=== PATIENT | male | born 1995 | race Caucasian/White ===

== ENCOUNTER 2018-02-04 19:46 | Inpatient (IN) | payer BC, OTHER ==
[~2018-02-04] VITALS: Ht 190.5 cm; Wt 63.5 kg
--- NOTE | 2018-02-04 21:30 | NUR ---
Pre-admission Assessment Patient is a 22-year old, male, seen at intake, AAOx4 and with no SOB noted. Patient appears anxious, fidgety, tremulous and easily agitated. Patient also observed to be flushed, disheveled, unkempt and malodorous. Discussed with patient admission policies of the unit. Patient has racing thoughts, is hyperverbal but coherent and able to respond to questions appropriately. Vital signs taken and as follows: PG=567/87, P=61, O2 sat on FE=277%, RR=22, T=98.3. Pt verbalized instructions and teachings regarding disposal of narcotic and other controlled home meds, unit protocols such as taking of vital signs Q4H and handling and disposal of contraband.
[2018-02-04] MEDS ORDERED: LORAZEPAM 2 MG/1 ML VIAL IM PRN (22:15)
[2018-02-04] MEDS ORDERED: DIAZEPAM 5 MG TABLET PO PRN (22:15)
[2018-02-04] MEDS ORDERED: ONDANSETRON ODT 4 MG TAB.RAPDIS SL PRN (22:15)
[2018-02-04] MEDS ORDERED: MAGNESIUM HYDROXIDE 30 ML LIQUID UDC PO PRN (22:15)
[2018-02-04] MEDS ORDERED: MAG HYDROX/AL HYDROX/SIMETH 30 ML LIQUID UDC PO PRN (22:15)
[2018-02-04] MEDS ORDERED: DICYCLOMINE HCL 20 MG TABLET PO PRN (22:15)
[2018-02-04] MEDS ORDERED: ONDANSETRON 4 MG/2 ML VIAL IM PRN (22:15)
[2018-02-04] MEDS ORDERED: diphenhydrAMINE 50 MG CAPSULE PO PRN (22:15)
[2018-02-04] MEDS ORDERED: MIRALAX 17 GM POWD.PACK PO PRN (22:15)
[2018-02-04] MEDS ORDERED: HYDROXYZINE PAMOATE 25 MG CAPSULE PO PRN (22:15)
[2018-02-04] MEDS ORDERED: THIAMINE HCL 200 MG/2 ML VIAL IM ONE (22:15)
[2018-02-04] MEDS ORDERED: LOPERAMIDE HCL 2 MG CAPSULE PO PRN ×2 (22:15)
[2018-02-04] MEDS ORDERED: DIAZEPAM 10 MG TABLET PO PRN ×2 (22:15)
[2018-02-04] MEDS ORDERED: ACETAMINOPHEN 325 MG TABLET PO PRN (22:15)
[2018-02-04] MEDS ORDERED: BUPRENORPHINE HCL 2 MG TAB.SUBL SL PRN (22:15)
[2018-02-04] MEDS ORDERED: DIAZEPAM 10 MG TABLET PO ONE (22:30)
[2018-02-04] MEDS ORDERED: BUPRENORPHINE HCL 2 MG TAB.SUBL SL ONE (22:30)
[2018-02-04 22:41] LABS: *AMPHETAMINE, URINE POSITIVE (NEGATIVE); *BARBITURATE, URINE NEGATIVE (NEGATIVE); *CANNABINOID, URINE POSITIVE (NEGATIVE); *COCCAINE, URINE POSITIVE (NEGATIVE); *OPIATE, URINE POSITIVE (NEGATIVE); *PHENCYCLIDINE SCREEN,URINE NEGATIVE (NEGATIVE)
--- NOTE | 2018-02-04 22:50 | NUR ---
Admission Note Patient is a 22-year-old, male, arrived to the floor at 2210 to be admitted for medically supervised withdrawal from Benzodiazepines (Xanax), Alcohol (Fireball-Cinnamon Whiskey) and Opiates (Heroin). Patient has also been using Cocaine, Methamphetamine and Marijuana. The patient appears to be withdrawing from using the substances mentioned above. He is noted to be depressed, anxious, easily agitated, hyper-verbal, with racing thoughts, restless, fidgety and tremulous. Patient c/o pain on bilateral lower extremities=4/10, and he verbalized that this is part of his withdrawal symptoms. Patient also observed to have gross tremors and appears disheveled, unkempt and malodorous. He also has dirty fingernails, dark under-eye circles and is seen to have compulsive skin picking. Patient verbalized, "I don't feel good. I can't sit still. I need help PAUL." Patient is AAOx4 and cooperative but at the same time is suspicious and paranoid. He verbalized, "I feel like you guys are talking about me behind my back. I don't like that." Patient was explained the unit policies and the confidentiality of the information about him and any other patient for that matter. Patient stated the he is currently homeless and he sometimes either lives with his friends or on the streets. 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 Per patient, her withdrawal symptoms include, "anxiety, depression, restless legs, agitation, irritability, auditory hallucination, chills, hot flushes, nausea and vomiting." Detox/Treatment History This is patient's first time in [facility] for detox. However, he stated that he has been to multiple detox and treatment centers, and he could only recall the last 2 at this time: 1) [facility] in [place], [place] x 25 days from November to January 05, 2018 2) [facility] in [place], [place] x 14 days from October to November 2017. Per patient, he did not finish the entire course of the treatment at this facility because he was "kicked out" due to fraternization. Per patient, he relapsed immediately on the day that he was discharged (January 05, 2018) at [facility]. Substance use 1) Xanax-started 6 years ago, patient has been using 4-6 mg PO daily for the last 18 days. Per patient, this is not a prescribed medication. He stated that he buys this substance "off the streets" and takes this "to balance out the edginess of using other drugs." Last use was on 02/03/2018 2000, 6 mg PO. 2) Alcohol: Fireball (Cinnamon Whiskey)-started 7 years ago, patient verbalized that he first started with drinking beer as a way to mingle with friends. For the past month, he has been drinking 375 ml of Fireball daily. Last drink was 02/04/2018 1600, 90 ml of Fireball. 3) Heroin-Per patient, he first tried using this substance 6 years ago via oral inhalation or smoking until he switched to using IV for "more than a couple of years." For the past 1 month, patient has been using 3 gm IV daily. Last use was 02/04/2018 0800, 3 gm IV. 4) Cocaine- started 3 years ago, patient verbalized that he first used this substance via oral inhalation or smoking and then switched to IV within a year. For the past 2 weeks, he has been using 1-1.5 gm IV daily. Last use was 02/04/2018 0800, 1.5 gm IV. 5) Methamphetamine-started 4 years ago, patient stated that he first used this substance via oral inhalation or smoking. Within the same year, he switched to using IV. For the 1 month, patient was using 0.5 gm IV daily with last use on 02/04/2018 1200, 0.5 gm IV. 6) Marijuana-started 8 years ago, patient verbalized smoking only intermittently or about "1-2 times a week" on average. For the past 1 month, he was smoking 1-2 times per week, with last use on 01/30/2018 and smoked "a blunt". Per patient, the longest period of sobriety that he could remember was 25 days, which was achieved when he was at [facility] from November to December 2017. According to the patient, he kept on relapsing because of family issues and intense cravings. He said that this time would be different because ""I thought that I was really going to this morning. I know for sure that I will soon if I don't stop." He also stated, "Look at me, I'm so skinny. I need this for myself and also for my mom. I need to regain my family's trust." Patient stated that he is allergic to Narcan and follows a regular diet. Patient has no Advanced Directive and wants to be Full Code. Patient denies having a Primary Care Physician nor a Psychiatrist. Patient reports a history of Anxiety (Clonidine), Depression (Seroquel), Bipolar Disorder (Seroquel), Heroin Overdose (last: June 2016), Restless Legs Syndrome (Gabapentin) and Multiple Blackouts. Patient stated that his last blackout was "probably last night. I could not remember anything that happened. I took Xanax and was drinking heavily." This is also one of the reasons why patient wanted to get admitted for detox. He verbalized, "I'm chana messed up to the point that I'm literally digging my own grave." Patient is depressed of his situation but is hopeful that coming to detox is a way for him to start his road to recovery. The core member of his support system is his mother. Patient denies having family history of substance abuse. Patient is determined to finish her detox course at [facility] and is interested in going to a Treatment Center to continue with his recovery. Vital signs are taken and as follows: BP: 145/70, HR: 64, RR: 22, SpO2: 100%, Temp: 98.4. Pulse is palpable and regular. Respirations are even and unlabored. Lung sounds clear. Bowel sounds active x4 quadrants. PERRLA, 4mm. Last bowel movement was in the morning of 02/03/2018. Per patient, her bowel movement is mostly every other day. No abdominal pain reported. Skin is intact, though he has healing pick jimenez on his bilateral lower extremities. Height is 6'3" and weighs 140 lbs per standing scale. Patient stated that he smokes about 1 pack of cigarettes daily. Patient reports no Suicidal Ideation nor Homicidal Ideation at the moment nor any history of both. Educated patient about plan of care including detox, group therapy, individual therapy, and discharge planning. Encouraged patient to be open and honest and verbalized support for patient in his recovery. COWS=18 and CIWA=19. PRN medications ordered. Will continue to monitor.
[2018-02-04] MEDS ORDERED: GABA800T2 PO (22:58)
[2018-02-04] MEDS ORDERED: IBUP-1957 PO (22:58)
[2018-02-04] MEDS ORDERED: CLON0.1T PO (22:58)
[2018-02-04] MEDS ORDERED: QUET100T PO (22:58)
[2018-02-04 23:00] VITALS: BP 143/82
[2018-02-04] MEDS ORDERED: QUETIAPINE FUMARATE 100 MG TABLET PO ONE (23:00)
[2018-02-04 23:16] LABS: BASOPHILS % (AUTO) 0.4 % (0.0-2.0); EOSINOPHILS % (AUTO) 0.2 % (0.0-7.0); LYMPHOCYTES # (AUTO) 1.2 K/uL (20.0-40.0); LYMPHOCYTES % (AUTO) 15.6 % (20.5-51.5); MEAN CORPUSCULAR HEMOGLOBIN 29.4 uug (23.8-33.4); MEAN CORPUSCULAR HGB CONC 34 g/dL (32.5-36.3); MEAN CORPUSCULAR VOLUME 86.1 fL (73.0-96.2); MONOCYTES # (AUTO) 0.6 K/uL (2.0-10.0); MONOCYTES % (AUTO) 8.5 % (0.0-11.0); NEUTROPHILS # (AUTO) 5.7 K/uL (1.8-8.9); NEUTROPHILS % (AUTO) 75.3 % (38.5-71.5); PLATELET COUNT (AUTO) 232 K/uL (152-348); RED BLOOD CELL COUNT(AUTO) 4.76 MIL/uL (4.06-5.63); WHITE BLOOD COUNT (AUTO) 7.6 K/uL (3.6-10.2)
[2018-02-04 23:31] LABS: ETHANOL < 3 MG/DL (0-0)
[2018-02-04 23:41] LABS: ALANINE AMINOTRANSFERASE 213 U/L (16-63); ALKALINE PHOSPHATASE 94 U/L (50-136); AMYLASE 24 U/L (25-115); ASPARTATE AMINOTRANSFERASE 529 U/L (15-37); BILIRUBIN,TOTAL 1.1 mg/dL (0.2-1.0); CARBON DIOXIDE 34 mmol/L (21-32); CHLORIDE 90 mmol/L (98-107); GLUCOSE 102 mg/dL (74-106); LIPASE 102 U/L (73-393); MAGNESIUM 2.4 mg/dL (1.8-2.4); POTASSIUM 3.2 mmol/L (3.5-5.1); TOTAL PROTEIN, SERUM 8.2 g/dL (6.4-8.2); UREA NITROGEN, BLOOD 20 mg/dL (7-18)
[2018-02-04 23:44] LABS: THYROID STIMULATING HORMONE 0.779 mIU/mL (0.358-3.740)
[2018-02-04] MEDS ORDERED: POTASSIUM CHLORIDE 20 MEQ TAB.PRT.SR PO ONE (23:45)
[2018-02-05] VITALS: BP 145/70
--- NOTE | 2018-02-05 | NUR ---
COWS=12, CIWA=13 Patient continues to be anxious and easily agitated. Patient also has tremors, flushed skin and with intermittent nausea.
[2018-02-05] MEDS: IBUPROFEN 600 MG TABLET PO PRN (00:25)
--- NOTE | 2018-02-05 00:26 | NUR ---
PRN Motrin Patient c/o pain on both lower extremities=09/30. Administered Motrin 600 mg PO PRN. Will reassess.
[2018-02-05] MEDS ORDERED: [UNRECOGNIZED DRUG - CODE] PO (00:43)
--- NOTE | 2018-02-05 01:30 | NUR ---
Motrin reassess Patient verbalized that pain level=2/10.
[2018-02-05 04:00] VITALS: BP 102/55
--- NOTE | 2018-02-05 04:00 | NUR ---
COWS=10, CIWA=11 Patient with tremors and anxiety. Patient continues to be disheveled and has dirty fingernails. Patient appears flushed and malnourished.
--- NOTE | 2018-02-05 07:19 | NUR ---
End of Shift Patient avoids conversation and continues to be anxious, flushed, disheveled and unkempt. Patient was encouraged to take a shower this morning and was educated with the importance of maintaining a good hygiene. Patient continues to have dirty fingernails and is restless. Patient in depressed mood, c/o BLE pain with current pain level=2-3/10. Fall, universal, seizure and safety prec in place. Call light within reach. Latest COWS=10, CIWA=11, slept for 6 hours. Endorsed to AM shift nurse for continuity of care.
--- NOTE | 2018-02-05 07:30 | NUR ---
Start of Shift Doper Operator received report on 22 year old male admitted to [facility] on 02/04/18 for medical management of Benzodiazepine, ETOH and Opiate withdrawals. Pt endorses allergies to Narcan, full code and regular diet. Pt endorses PMH of Restless Legs Syndrome. Endorses PPH of anxiety, depression and Bipolar DO. Pt has not been started on any taper, with OT orders for Subutex and Valium received and administered, per NOC report. Last CIWA 11 and COWS 10. Doper Operator encounters pt in pts room with pt resting with eyes closed. Even and unlabored respirations noted. Bed in low position with wheels locked and side rails upx2. Will continue to monitor, support and encourage according to plan of care
--- NOTE | 2018-02-05 08:00 | NUR ---
CIWA/COWS Deferred Landscape Technician unable to assess pt due to somnolence and lethargy. Will continue to monitor, support and encourage according to plan of care.
[2018-02-05 08:58] VITALS: BP 95/50
[2018-02-05] MEDS ORDERED: TUBERCULIN,PURIF.PROT.DERIV. 5 TU/0.1 ML TEST ID ONE (09:00)
[2018-02-05] MEDS: THIAMINE HCL 100 MG TABLET PO SCH (09:00)
[2018-02-05] MEDS: FOLIC ACID 1 MG TABLET PO SCH (09:00)
[2018-02-05] MEDS: MULTIVITAMINS,THERAPEUTIC TABLET PO SCH (09:00)
[2018-02-05] MEDS ORDERED: 5 DAY TAPER OF LORAZEPAM -SERENITY PROTOCOL PO PRN (09:30)
[2018-02-05] MEDS ORDERED: 5 DAY TAPER BUPRENORPHINE -SERENITY PROTOCOL SL PRN (09:30)
[2018-02-05 12:15] VITALS: BP 111/67
[2018-02-05] MEDS: LORAZEPAM 1 MG TABLET PO SCH ×3 (13:05→20:51)
[2018-02-05] MEDS: BUPRENORPHINE HCL 2 MG TAB.SUBL SL SCH ×3 (13:05→20:51)
--- NOTE | 2018-02-05 13:05 | NUR ---
CIWA 16 / COWS 14 Client is pacing the hallway, he appears malnourished, anxious, depressed mood, noted with clammy skin, tremors felt, and difficulty concentrating. Client reports restless legs, agitation, irritability, chills, hot flushes, poor appetite, and headache. Scheduled Ativan 2mg PO and Subutex 4mg SL administered. Call light within reach.
--- NOTE | 2018-02-05 15:18 | NUR ---
Therapist prompted client to attend group therapy.
[2018-02-05 16:30] VITALS: BP 113/65
--- NOTE | 2018-02-05 16:30 | NUR ---
CIWA 18/COWS 15 Pt is irritable with an anxious affect and depressed mood. Pt is tremulous, diaphoretic, and complains of nausea, chills, myalgia and stomach cramps. Pt denies need for medication at this time, " I want to let the scheduled medication work." Will continue to monitor, support and encourage according to plan of care.
--- NOTE | 2018-02-05 18:54 | NUR ---
End of Shift Undergraduate Intern provided report on 22 year old male admitted to [facility] on 02/04/18 for medical management of Benzodiazepine, ETOH and Opiate withdrawals. Pt endorses allergies to Narcan, full code and regular diet. Pt endorses PMH of Restless Legs Syndrome. Endorses PPH of anxiety, depression and Bipolar DO. Pt was started on a 5 day Subutex and 5 day Ativan taper. Last CIWA 18and COWS 15. No PRN medications administered this shift. Pt is A/O x4 and able to make needs known. Pt with a cleat speech pattern and linear thought process. Pt is cooperative and polite with entry writer. Pt is anxious and restless, paces in his room and re-arranges possessions. Pt is visible on the unit. Bed in low position with wheels locked and side rails upx2.
--- NOTE | 2018-02-05 19:30 | NUR ---
PRN Valium Patient noted to be tremulous, easily startled, anxious, flushed and cannot sit still. Patient verbalized "feeling very scared". CIWA=19. Administered PRN Valium 20 mg PO. Will reassess.
--- NOTE | 2018-02-05 19:36 | NUR ---
PRN Subutex Patient noted to be easily agitated, unable to sit still, tremulous and with stuffy nose. COWS=18. Administered Subutex 4 mg SL. Will reassess.
--- NOTE | 2018-02-05 19:50 | NUR ---
Start of Shift Patient noted to be restless, tremolous, fidgety and cannot sit still. Patient speaks in a soft voice, slow manner and is teary-eyed. Patient is in depressed mood. Patient verbalized that "tons of things are running on my mind. I feel so wired." Patient appears disheveled, unkempt and with dirty fingernails and toenails. Patient was educated of medications, non-pharma skills to decrease anxiety and importance of maintaining a good hygiene. Patient is emotionally-labile, isolative and melancholic. Fall, universal, seizure and safety prec in place. Call light within reach. Latest COWS=18, CIWA=19. Will continue to monitor.
[2018-02-05 20:00] VITALS: BP 123/77
--- NOTE | 2018-02-05 20:05 | NUR ---
Subutex reassess Patient continues to be fidgety and tremulous. Patient is restless and emotionally labile. Patient verbalized, "I feel just a tad better."
[2018-02-05] MEDS ORDERED: LORAZEPAM 1 MG TABLET PO PRN (20:30)
--- NOTE | 2018-02-05 20:30 | NUR ---
Valium reassess Patient noted to be less anxious and less fidgety, continues to be emotional, tremulous and melancholic. CIWA=16. MD made aware. Vital signs are stable.
[2018-02-05] MEDS: QUETIAPINE FUMARATE 100 MG TABLET PO SCH (20:52)
--- NOTE | 2018-02-05 21:35 | NUR ---
Bactrim DS Patient noted with swelling on the right foot, warm and tender to touch. Patient able to ambulate but c/o increased swelling on the right foot. Dr. Ybarra made aware. ordered Bactrim DS Q12H. First to be administered tonight.
[2018-02-05] MEDS: SULFAMETH/TRIMETH 800/160 MG TABLET PO SCH (21:41)
[2018-02-05] MEDS ORDERED: DIAZEPAM 5 MG TABLET PO PRN (21:45)
[2018-02-05] MEDS ORDERED: DIAZEPAM 10 MG TABLET PO PRN (21:45)
[2018-02-06] VITALS: BP 117/71
--- NOTE | 2018-02-06 | NUR ---
COWS=14, CIWA=14 Patient continues to be easily agitated, fidgety, easily startled and tremulous. Patient is restless and also suspicious and paranoid.
[2018-02-06] MEDS ORDERED: GABAPENTIN 400 MG CAPSULE PO ONE (01:15)
--- NOTE | 2018-02-06 01:15 | NUR ---
PRN Valium Patient noted to be anxious, easily agitated, fidgety and emotional. Patient also is restless and suspicious. CIWA=19. Administered Valium 20 mg PO PRN. Will reassess.
--- NOTE | 2018-02-06 02:15 | NUR ---
Valium reassess Patient verbalized that he is still anxious, noted to be easily agitated, restless and mumbles when he speaks. Patient continues with tremors. CIWA=17.
[2018-02-06] MEDS: IBUPROFEN 600 MG TABLET PO PRN ×2 (02:30→20:37)
[2018-02-06] MEDS: CLONIDINE HCL 0.1 MG TABLET PO PRN ×2 (02:31→20:37)
--- NOTE | 2018-02-06 02:32 | NUR ---
PRN Benadryl, Motrin and Clonidine Patient c/o inability to sleep, pain on BLE=5/10 and increasing agitation. Administered Benadryl 50 mg PO PRN, Motrin 600 mg PO PRN and Clonidine 0.1 mg PO PRN. Will reassess.
--- NOTE | 2018-02-06 03:35 | NUR ---
Benadryl, Motrin and Clonidine reassess Patient lying on bed, eyes closed and with no facial grimacing nor SOB noted. Will closely monitor.
[2018-02-06 04:00] VITALS: BP 122/78
--- NOTE | 2018-02-06 04:00 | NUR ---
COWS=12, CIWA=13 Patient continues to be flushed, anxious, fidgety, emotional and suspicious. Patient thinks that everyone in the unit is talking about him. Patient was grounded to reality and was explained that everyone is looking out for his safety.
[2018-02-06 05:06] LABS: HEPATITIS B SURFACE AG Negative (Negative)
--- NOTE | 2018-02-06 07:34 | NUR ---
End of Shift Patient currently asleep, was only able to sleep since 399. From the start of shift until 399, patient was fidgety and tremulous. Patient was anxious and argumentative due to his suspicious and paranoid behavior. He stated that the staff kept on talking about him. Patient was tremulous, emotional and at times teary-eyed. PRN medications were administered for anxiety, agitation and other withdrawal symptoms. Patient continues to be disheveled, unkempt and possesses strong body odor. Patient with dark under-eye circles and dirty toenails and fingernails. Patient was educated regarding medication side effects, maintaining hygiene and coping mechanisms to minimize anxiety. Patient with swelling on right foot, warm and tender to touch. Bactrim DS Q12H was started last night. Patient is at risk for continuous exacerbation of withdrawal symptoms. Fall, universal, seizure and safety prec implemented the whole shift. Call light within reach. Latest COWS=12, CIWA=13, slept for 3 hours so far and continues to be asleep at this time. Endorsed to AM shift nurse for continuity of care.
--- NOTE | 2018-02-06 07:38 | NUR ---
Start Of Shift Report received from lieutenant shift supervisor nurse. Pt is 22 year old male admitted to [facility] on 02/04/18 for medical management of Benzodiazepine, ETOH and Opiate withdrawals. Per lieutenant shift supervisor nurse pt's last CIWA was 13 and COWS was a 12. Pt continues his 3 day Valium and 5 Day Subutex tapers. Upon start of shift pt noted laying in his bed with his eyes closed resting, breathing even and unlabored. When greeted pt stated " Im feeling terrible can I please have my morning medications so I can feel better". Pt's room appears unorganized and messy, pt has soda bottles and candy wraps thrown around the room, Pt appears disheveled and is odorous. Pt appears anxious, fidgety, withdrawn, sweaty and flushed. During assessment, pt is AOx3. Lung sounds clear bilaterally. Radial pulse is regular and non-bounding. Abdomen soft and non-tender. Pt's skin is warm and intact. Pt denies any pain at the moment. Encouraged pt to drink plenty of fluids to compensate for the water lost through sweat, keep hydrated and help with the detox process. Pt received PRN Valium 20mg X2 PRN Subutex 4mg, Clonidine 0.1mg and Benadryl 50mg PO for withdrawal symptoms, and insomnia, medication effective per lieutenant shift supervisor nurse. Pt slept a total of 5 hours last night. Bed in lowest position. Side rails up x2. Call light functioning and within reach. All needs attended and met. Will continue to monitor.
--- NOTE | 2018-02-06 08:00 | NUR ---
CIWA 13 COWS 13 Pt has diaphoresis, anxiety restless legs, yawning agitation, Emotional volatility and restlessness. Pt complains of chills runny nose and fatigue. Pt encouraged to drink more fluids to help with detox process. Will continue to monitor, support and encourage according to plan of care.
[2018-02-06 08:02] VITALS: BP 124/82
[2018-02-06] MEDS ORDERED: LORAZEPAM 1 MG TABLET PO SCH (09:00)
[2018-02-06] MEDS ORDERED: Medication Not On Formulary EA (Gabapentin 800 MG) PO SCH (09:00)
[2018-02-06] MEDS ORDERED: 3 DAY TAPER OF VALIUM-SERENITY PROTOCOL PO PRN (09:00)
[2018-02-06] MEDS: SULFAMETH/TRIMETH 800/160 MG TABLET PO SCH ×2 (09:59→20:36)
[2018-02-06] MEDS: BUPRENORPHINE HCL 2 MG TAB.SUBL SL SCH ×3 (09:59→20:37)
[2018-02-06] MEDS: THIAMINE HCL 100 MG TABLET PO SCH (09:59)
[2018-02-06] MEDS: MULTIVITAMINS,THERAPEUTIC TABLET PO SCH (09:59)
[2018-02-06] MEDS: FOLIC ACID 1 MG TABLET PO SCH (09:59)
[2018-02-06 12:00] VITALS: BP 120/89
--- NOTE | 2018-02-06 12:00 | NUR ---
COWS 13 CIWA 14 Pt has diaphoresis, anxiety restless legs, yawning agitation, Emotional volatility and restlessness. Pt complains of chills runny nose and fatigue. Pt encouraged to drink more fluids to help with detox process. Will continue to monitor, support and encourage according to plan of care.
[2018-02-06] MEDS: DIAZEPAM 10 MG TABLET PO PRN ×2 (12:52→18:04)
[2018-02-06] MEDS: GABAPENTIN 400 MG CAPSULE PO SCH ×3 (12:52→20:36)
--- NOTE | 2018-02-06 12:55 | NUR ---
PRN VALIUM Pt c/o anxiety, presented with flushed face, stuffy eyes, runny nose, agitation, pacing, upon assessment pt had a CIWA score of 14 Pt received PRN Valium 10mg per MD order. will continue to monitor.
--- NOTE | 2018-02-06 13:55 | NUR ---
PRN REASSESSMENT Pt verbalized feeling better and stated that he feels "more calm than i was earlier" all needs met will continue to monitor pt and provide care.
[2018-02-06] MEDS: DIAZEPAM 10 MG TABLET PO SCH ×2 (15:08→20:37)
--- NOTE | 2018-02-06 15:16 | NUR ---
Therapist prompted client to attend group therapy sessions. Client stated that he is not interested in attending groups.
[2018-02-06 16:00] VITALS: BP 129/91
--- NOTE | 2018-02-06 16:00 | NUR ---
CIWA 11 COWS 12 Pt has fine tremors, diaphoresis, anxiety and restlessness. Pt complains of chills and body aches. pt has generalized pain. Pt encouraged to drink more fluids to help with detox process. Will continue to monitor, support and encourage according to plan of care.
--- NOTE | 2018-02-06 18:06 | NUR ---
PRN VALIUM Pt c/o anxiety, presented with flushed face, stuffy eyes, runny nose, agitation, Pt was noted pacing around the unit, upon assessment pt had a CIWA score of 11 Pt received PRN Valium 10mg per MD order. will continue to monitor.
[2018-02-06 18:19] LABS: BILIRUBIN,TOTAL 0.3 mg/dL (0.2-1.0); POTASSIUM 3.3 mmol/L (3.5-5.1); TOTAL PROTEIN, SERUM 6.9 g/dL (6.4-8.2)
--- NOTE | 2018-02-06 19:09 | NUR ---
End Of Shift Report given to customer service representative teacher nurse, Plan of care followed, Vital signs monitored closely Q4H. Withdrawals symptoms were closely monitored, medications given as schedule. Initial CIWA 11 COWS 13. Pt encouraged adequate PO fluid intake as tolerated to compensate for all the water lost in sweat as well as with helping speed up the detox process. Pt presented with diaphoresis, anxiety restless legs, yawning, agitation, emotional volatility and restlessness during the day. Pt received all of the scheduled medications. Pt received PRN Valium 10mg PO x 2 for CIWA 13 and CIWA 11 medication effective. Last CIWA was a 11 COWS 12. Pt reported that Subutex and Valium have been working well at controlling the withdrawal symptoms. Pt ate all of the meals. Pt did not attend any groups or activities. Pt denies any SI/HI. All safety measures in place, bed in lowest locked position, call light within reach. All needs met and attended
--- NOTE | 2018-02-06 19:30 | NUR ---
Start of Shift Patient Received. Per endorsement, patient continues on a modified 3 day Valium taper and 5 day Subutex taper. Patient continues on Bactrim DS for swelling to the left foot with edema 2+. Patient received PRN Valium 10mg x2 with medication noted to be effective. Last noted CIWA 11 and COWS 12. Patient was reported with episodes of behavior and noted to be disrespectful towards staff. Upon rounds patient was noted in bed with eyes closed. Breathing even and non labored. No signs of pain or discomfort noted. All needs attended to promptly. Will continue plan of care as ordered.
[2018-02-06 20:33] VITALS: BP 117/71
[2018-02-06] MEDS: QUETIAPINE FUMARATE 100 MG TABLET PO SCH (20:36)
--- NOTE | 2018-02-06 20:40 | NUR ---
PRN Medication Administration Patient is noted to verbalize increased pain 6/10 and verbalizing increased agitation. PRN Motrin and Clonidine administered with routine medications. During medication administration patient is noted with aggressive, abusive, disrespectful language, while waiting for Subutex to dissolve patient was noted to say "what the fuck do you think I'm going to do? take the crumbs and shot them up? Makes no fucking sense. They are done." Explained to patient of unit protocols and rules. Patient was able to verbalize understanding. All needs attended to promptly. Will continue to monitor.
[2018-02-06] MEDS ORDERED: POTASSIUM CHLORIDE 20 MEQ TAB.PRT.SR PO ONE (21:00)
--- NOTE | 2018-02-06 21:40 | NUR ---
PRN Medication Reassessment Patient is noted in bed with eyes closed. Breathing even and non labored. No signs of restlessness or facial grimacing noted. PRN Motrin and Clonidine noted to be effective. Will continue to monitor.
--- NOTE | 2018-02-07 00:38 | NUR ---
CIWA Assessment patient is noted in bed with eyes closed. Breathing even and non labored. Vitals refused. CIWA and COWS not able to be completed as per order. Will continue to monitor.
--- NOTE | 2018-02-07 04:20 | NUR ---
CIWA and COWS Patient is noted in bed with eyes closed. Breathing even and non labored. no signs of restlessness or discomfort noted. patient refused vitals. CIWA and COWS not able to be completed as per order. Will continue to monitor.
--- NOTE | 2018-02-07 07:10 | NUR ---
End of Shift Patient is in bed with eyes closed. Breathing even and non labored. No signs of facial grimacing or restlessness noted. Patient continues on a modified 3 day Valium taper and 5 day Subutex taper. Patient continues on Bactrim DS for swelling to the left foot with edema 2+. Patient received PRN Motrin for pain and Clonidine for increased agitation with medication noted to be effective. Last noted CIWA 16 and COWS 15. Patient is noted to sleep a total of 7 hours. All needs attended to promptly. Will endrose to continue plan of care as ordered.
--- NOTE | 2018-02-07 07:30 | NUR ---
START OF SHIFT Endorse rcvd from ongoing nurse, client is in bed, lying on his back, sounds asleep, RR 16 even, non-labored, easy to arouse, he said, What the fuck, let me sleep. PRN Clonidine 0.1mg PO for agitation, Motrin 600mg PO for pain,. Client slept 7 hrs. Last CIWA 15 / COWS 16 @ 2400. Seizure precautions. Bed in lowest/locked position, side rails x 1 up, client refused to have side rails x 2 up/padded. Call light within reach. Will continue to monitor.
[2018-02-07 07:34] LABS: CARBON DIOXIDE 30 mmol/L (21-32); CHLORIDE 103 mmol/L (98-107); CREATININE 0.7 mg/dL (0.6-1.3); GLUCOSE 103 mg/dL (74-106); POTASSIUM 3.8 mmol/L (3.5-5.1); UREA NITROGEN, BLOOD 11 mg/dL (7-18)
[2018-02-07 08:36] VITALS: BP 105/71
[2018-02-07] MEDS: FOLIC ACID 1 MG TABLET PO SCH (09:00)
[2018-02-07] MEDS ORDERED: LORAZEPAM 1 MG TABLET PO SCH (09:00)
[2018-02-07] MEDS ORDERED: BUPRENORPHINE HCL 2 MG TAB.SUBL SL SCH (09:00)
[2018-02-07] MEDS: MULTIVITAMINS,THERAPEUTIC TABLET PO SCH (09:00)
[2018-02-07] MEDS: DIAZEPAM 5 MG TABLET PO SCH ×3 (09:48→20:07)
[2018-02-07] MEDS: THIAMINE HCL 100 MG TABLET PO SCH (09:49)
[2018-02-07] MEDS: GABAPENTIN 400 MG CAPSULE PO SCH ×3 (09:49→20:07)
[2018-02-07] MEDS: SULFAMETH/TRIMETH 800/160 MG TABLET PO SCH ×2 (09:49→20:07)
--- NOTE | 2018-02-07 10:43 | NUR ---
Therapist prompted client to attend group therapy sessions.
[2018-02-07 12:10] VITALS: BP 107/69
[2018-02-07] MEDS: CLONIDINE HCL 0.1 MG TABLET PO PRN (12:11)
--- NOTE | 2018-02-07 12:11 | NUR ---
CIWA 15 / COWS 15 & PRN Clonidine 0.1mg PO, Vistaril 50mg PO for agitation and anxiety Client presents with anxious mood, agitation, irritability, restlessness, avoidant gaze, clammy skin, tremors, nausea, poor appetite, abdominal cramps, yawning, goosebump, and difficulty concentrating. Call light within reach.
--- NOTE | 2018-02-07 13:11 | NUR ---
Reassess PRN Clonidine 0.1mg, Vistaril 50mg, client reports feeling no relief from anxiety and agitation.
[2018-02-07] MEDS: BUPRENORPHINE HCL 2 MG TAB.SUBL SL SCH ×2 (15:43→20:08)
--- NOTE | 2018-02-07 15:43 | NUR ---
CIWA 15 / COWS 15 Client reports agitation, anxiety, poor appetite, chills/colds, clammy skin, depression, difficulty concentrating, emotional volatility, enlarged pupils, fatigue, fine tremors, flushed facial skin, goose bumps, nausea, restless legs, sweating, and yawning. Schedule Valium 5mg PO, Subutex 2mg SL administered. Call light within reach.
[2018-02-07 16:00] VITALS: BP 106/68
--- NOTE | 2018-02-07 19:03 | NUR ---
END OF SHIFT Endorse client to incoming nurse, client is in room continues to present with agitation, anxiety, poor appetite, chills/colds, clammy skin, depression, difficulty concentrating, emotional volatility, enlarged pupils, fatigue, fine tremors, flushed facial skin, goose bumps, nausea, restless legs, sweating, and yawning. PRN administered and noted per protocol. Last CIWA 15 / COWS 15 @ 1600. Client is compliant with group therapy. Client continues on Bactrim DS PO 1 tab for R foot infection 3 out of 7 days. Adequate PO fluid intake 1202mL, void x 2. Consumes 25-50% of meals. Seizure precautions in place. Bed in lowest/locked position, side rails x 1 up, client declines both side rails x 2 up/padded. Call light within reach.
--- NOTE | 2018-02-07 19:10 | NUR ---
Start of shift note Received report from day shift nurse. Pt is a 22 yo male, A+Ox4, presenting to [facility] for medically supervised Benzo/ETOH/Opiate withdrawal. Pt was also using Methamphetamines. Pt noted with anxiety, agitation, irritability, and restlessness. Pt has HX of anxiety, depression, bipolar disorder, and restless leg syndrome which will be monitored during shift. Pt remains on 3 day Valium and 5 day Subutex tapers, tolerated well. Respirations even and unlabored. Will continue to monitor.
[2018-02-07] MEDS: QUETIAPINE FUMARATE 100 MG TABLET PO SCH (20:07)
[2018-02-07 20:10] VITALS: BP 126/67
--- NOTE | 2018-02-07 20:10 | NUR ---
COWS and CIWA Assessment COWS: 11 and CIWA: 9. Pt noted with pulse 87, flushed face, sweat on brow, restless, enlarged pupils, mild diffuse discomfort, stuffy nose, stomach cramps, yawning, anxiety, agitation, and fine tremors. Respirations even and unlabored. Will continue to monitor.
--- NOTE | 2018-02-08 00:52 | NUR ---
V/S refused and COWS and CIWA Assessment deferred for sleep. Respirations even and unlabored. Will continue to monitor.
--- NOTE | 2018-02-08 04:30 | NUR ---
V/S refused and COWS and CIWA Assessments deferred for sleep. Respirations even and unlabored. Will continue to monitor.
--- NOTE | 2018-02-08 07:00 | NUR ---
End of shift note Pt was continuously noted with anxiety, agitation, and restlessness. Pt remained in room for majority of shift except to get food from kitchen and to go smoke on smoking patio. Pt remained compliant and cooperative with all aspects of treatment. Pt was not given any PRN medications during shift. Pt remains on 3 day Valium and 5 day Subutex tapers, tolerated well. Pt slept for a total of 9 HRS. Last COWS: 11 and Last CIWA: 9 @2009. Respirations even and unlabored. Will endorse to day shift nurse.
--- NOTE | 2018-02-08 07:30 | NUR ---
Start of Shift Permaculture Contractor received report on 22 year old male admitted to [facility] on 02/04/18 for medical management of Benzodiazepine, ETOH and Opiate withdrawals. Pt endorses allergies to Narcan, full code and regular diet. Pt endorses PMH of Restless Legs Syndrome. Endorses PPH of anxiety, depression and Bipolar DO. Pt is currently on a 3 day Valium and 5 day Subutex tapers. Last CIWA 9 and COWS 11. No PRN medications administered on NOC, per report. Permaculture Contractor encounters pt in pts room, pt is resting, irritable , but cooperative. Pt is A/O x4 and makes his needs known. Pt with an angry affect and depressed mood. Bed in low position with wheels locked and side rails upx2. Will continue to monitor, support and encourage according to plan of care
[2018-02-08 08:00] VITALS: BP 122/76
--- NOTE | 2018-02-08 08:00 | NUR ---
CIWA 10/COWS 11 Pt is diaphoretic, tremulous, anxious and restless, with complaints of nausea, chills and myalgia. Pt with a stuffy nose and irritability, labile. Will continue to monitor, support and encourage according to plan of care.
[2018-02-08] MEDS: DIAZEPAM 5 MG TABLET PO SCH ×2 (08:58→20:37)
[2018-02-08] MEDS: SULFAMETH/TRIMETH 800/160 MG TABLET PO SCH ×2 (08:58→20:37)
[2018-02-08] MEDS: FOLIC ACID 1 MG TABLET PO SCH (08:58)
[2018-02-08] MEDS: MULTIVITAMINS,THERAPEUTIC TABLET PO SCH (08:58)
[2018-02-08] MEDS: GABAPENTIN 400 MG CAPSULE PO SCH ×3 (08:58→20:37)
[2018-02-08] MEDS: BUPRENORPHINE HCL 2 MG TAB.SUBL SL SCH ×3 (08:58→20:37)
[2018-02-08] MEDS: THIAMINE HCL 100 MG TABLET PO SCH (08:58)
[2018-02-08] MEDS ORDERED: LORAZEPAM 1 MG TABLET PO SCH (09:00)
--- NOTE | 2018-02-08 10:21 | NUR ---
Endorsement of Care Cardiac Sonographer endorsed care of pt to LORY Kenyon. No further comments, questions or concerns voiced. Addendum: 02/08/18 at 1022 by LEOPOLDO FUENTES RN Endorsed care to LORY Davey Addendum: 02/08/18 at 1032 by LEOPOLDO FUENTES RN Endorsed care of pt to LVN. Melba
--- NOTE | 2018-02-08 10:33 | NUR ---
Assumed Care: Assumed Care for the patient at this time. Patient is a 22 year old male admitted for BZO/ETOH/Opiate withdrawal that was placed on a 3-day Valium and 5-day Subutex taper as ordered. No adverse reactions noted. No PRNs given since the beginning of the shift. Last . Will continue to monitor.
[2018-02-08 12:00] VITALS: BP 125/89
--- NOTE | 2018-02-08 12:39 | NUR ---
COWS/CIWA Assessment: COWS10, CIWA 9, patient continues to present with s/s of withdrawal mb restlessness, irritability, anxiety, agitation, diaphoresis, facial flushing and generalized discomfort. Offered PRNs. Able to participate in AM group. Will continue to monitor.
[2018-02-08 16:00] VITALS: BP 125/71
--- NOTE | 2018-02-08 16:22 | NUR ---
COWS/CIWA Assessment: COWS 10, CIWA 10, patient continues to present with s/s of withdrawal mb restlessness, irritability, gross tremors, anxiety, agitation, diaphoresis, facial flushing and generalized discomfort. Offered PRNs. Will continue to monitor.
--- NOTE | 2018-02-08 19:04 | NUR ---
End of Shift Notes: Patient continues to be on 3-day Valium and 5-day Subutex taper as ordered to manage symptoms related to BZO/ETOH and opiate withdrawal. VS monitored closely. No significant abnormalities noted. Withdrawal symptoms were closely monitored. Initial COWS 10/CIWA 11, patient presented with restlessness, nasal stuffiness, myalgia, stomach cramps, gross tremors, increased anxiety, agitation and nausea. Last COWS 10/CIWA 9. Patient verbalizes that Subutex and Valium has been effective in reducing his withdrawal symptoms. Able to participate in group and activities despite his withdrawal symptoms. All needs met and attended. Will continue to monitor closely.
--- NOTE | 2018-02-08 19:11 | NUR ---
Start of shift note Received report from day shift nurse. Pt is a 22 yo male, A+Ox4, presenting to [facility] for medically supervised Benzo/ETOH/Opiate withdrawal. Pt was using Cocaine, Methamphetamines, and Marijuana. Pt noted with restlessness, anxiety, and agitation. Pt has HX of anxiety, depression, bipolar disorder, and restless leg syndrome which will be monitored during shift. Pt remains on 3 day Valium and 5 day Subutex tapers, tolerated well. Respirations even and unlabored. Will continue to monitor.
--- NOTE | 2018-02-08 20:17 | NUR ---
COWS and CIWA Assessment COWS: 9 and CIWA: 8. Pt noted with pulse 97, chills, restlessness, enlarged pupils, mild diffuse discomfort, stuffy nose, fine tremors, sweat, anxiety, and agitation. Respirations even and unlabored. Will continue to monitor.
[2018-02-08 20:22] VITALS: BP 117/79
[2018-02-08] MEDS: QUETIAPINE FUMARATE 100 MG TABLET PO SCH (20:37)
[2018-02-08] MEDS: QUETIAPINE FUMARATE 25 MG TABLET PO SCH (20:37)
--- NOTE | 2018-02-09 00:27 | NUR ---
V/S refused and COWS and CIWA Assessments deferred for sleep. Respirations even and unlabored. Will continue to monitor.
--- NOTE | 2018-02-09 04:46 | NUR ---
V/S refused and COWS and CIWA Assessments deferred for sleep. Respirations even and unlabored. Will continue to monitor.
--- NOTE | 2018-02-09 07:00 | NUR ---
End of shift note Pt was continuously noted with agitation, anxiety, and restlessness. Pt remained in room for majority of shift except to get food from kitchen, to go smoke on smoking patio, and to interact with other patients in recreational room. Pt remained compliant and cooperative with all aspects of treatment. Pt was not given any PRN medications during shift. Pt continues on 3 day Valium and 5 day Subutex tapers, tolerated well. Pt slept for a total of 8 HRS. Last COWS: 9 and Last CIWA: 8 @2017. Respirations even and unlabored. Will endorse to day shift nurse.
[2018-02-09 08:00] VITALS: BP 137/83
--- NOTE | 2018-02-09 08:05 | NUR ---
START OF SHIFT: Received Pt A/O X 4. He presents with anxious mood and congruent affect. He is fidgety. He c/o sweats and intermittent chills. He reports body aches,anxiety and restlessness. COWS 8 CIWA 8. Valium/Subutex taper in progress to manage s/s of w/d. Encouraged increased fluids. Encouraged group attendance to improve coping skills and prevent relapse.Will continue to monitor and offer support.
[2018-02-09] MEDS: QUETIAPINE FUMARATE 25 MG TABLET PO SCH ×2 (08:55→20:17)
[2018-02-09] MEDS: THIAMINE HCL 100 MG TABLET PO SCH (08:55)
[2018-02-09] MEDS: GABAPENTIN 400 MG CAPSULE PO SCH ×3 (08:55→20:17)
[2018-02-09] MEDS: FOLIC ACID 1 MG TABLET PO SCH (08:55)
[2018-02-09] MEDS: MULTIVITAMINS,THERAPEUTIC TABLET PO SCH (08:55)
[2018-02-09] MEDS: SULFAMETH/TRIMETH 800/160 MG TABLET PO SCH ×2 (08:55→20:17)
[2018-02-09] MEDS ORDERED: LORAZEPAM 1 MG TABLET PO SCH (09:00)
[2018-02-09] MEDS ORDERED: DIAZEPAM 5 MG TABLET PO ONE (09:00)
[2018-02-09] MEDS ORDERED: BUPRENORPHINE HCL 2 MG TAB.SUBL SL SCH (09:00)
[2018-02-09 12:00] VITALS: BP 118/73
--- NOTE | 2018-02-09 12:05 | NUR ---
Noon COWS 7 CIWA 7. He reports anxiety,restlessness,fatigue,irritability and agitation.
[2018-02-09 16:00] VITALS: BP 124/79
--- NOTE | 2018-02-09 18:24 | NUR ---
END OF SHIFT: Pt continues on Subutex/Valium taper to manage s/s of w/d which include anxiety,body aches,restlessness and intermittent sweats and chills.Last COWS 7 CIWA 7 He was observed interacting with peers . He was excused from group as he was very fatigued and stated he needed rest. His appetite is improving. He states he is eating better. He was compliant with increased fluids. Will pass shift report to oncoming night nurse.
--- NOTE | 2018-02-09 19:02 | NUR ---
START OF SHIFT Patient is a 22-year-old male admitted on 02/04/18 for benzo, ETOH, and opiate withdrawal. Patient has completed a 3-day Valium taper and 5-day Subutex taper, tolerated well. Patients last COWS was 7, last CIWA 7, per endorsement. Patient did not receive any PRN medications today. Upon assessment, patient appears disheveled and unkempt, dark circles under eyes. Patient complains of some tenderness in his right foot and some pain from a toothache in his back molar. Patient is alert and oriented, flat affect, soft spoken and appears tired. Patient is on fall and seizure precautions with no previous seizure history. Safety measures in place, bed locked in low position, side rails up x2, call light within reach. Will continue to monitor.
[2018-02-09 20:00] VITALS: BP 116/89
--- NOTE | 2018-02-09 20:00 | NUR ---
COWS 7, CIWA 9 Patient reports anxiety, agitation, and mild diaphoresis. Current COWS is 7, CIWA is 9. SN to administer meds as ordered. Safety measures in place, call light within reach.
[2018-02-09] MEDS: QUETIAPINE FUMARATE 100 MG TABLET PO SCH (20:17)
[2018-02-09] MEDS: IBUPROFEN 600 MG TABLET PO PRN (20:17)
--- NOTE | 2018-02-09 20:17 | NUR ---
PRN MOTRIN Patient reports toothache 08/30, stating, "it started hurting about an hour ago." PRN Motrin given PO. Safety measures in place, side rails up x2, bed locked in low position, call light within reach. Will monitor for effectiveness.
--- NOTE | 2018-02-09 21:17 | NUR ---
PRN MOTRIN REASSESSMENT Patient reports that his toothache pain has improved, 2/10 on pain scale. PRN Motrin noted to be effective. Safety measures in place, side rails up x2, bed locked in low position, call light within reach. Will continue to monitor.
[2018-02-10] VITALS: BP 109/68
--- NOTE | 2018-02-10 | NUR ---
COWS & CIWA DEFERRED COWS and CIWA deferred at this time due to patient sleeping; to be assessed and scored while patient is awake. Respirations even and unlabored. Safety measures in place, side rails up, bed locked in low position, call light within reach. Will continue to monitor.
[2018-02-10 04:00] VITALS: BP 115/70
--- NOTE | 2018-02-10 04:00 | NUR ---
COWS & CIWA DEFERRED COWS and CIWA deferred due to patient sleeping; to be assessed while patient is awake. Respirations even and unlabored. Safety measures in place, call light within reach. Will continue to monitor.
--- NOTE | 2018-02-10 07:25 | NUR ---
END OF SHIFT Patient is a 22-year-old male admitted on 02/04/18 for benzo, ETOH, and opiate withdrawal. Patient has completed a 3-day Valium taper and 5-day Subutex taper, tolerated well. Patients last COWS was 7, last CIWA 9. Patient received PRN Motrin for toothache which was noted to be effective. Patient slept for 11 hours, total intake of 592mL, void x2, stool x0. Patient is on fall and seizure precautions with no previous seizure history. Safety measures in place, bed locked in low position, side rails up x2, call light within reach. Will endorse to day shift.
[2018-02-10 08:00] VITALS: BP 120/68
--- NOTE | 2018-02-10 08:12 | NUR ---
START OF SHIFT: Received Pt A/O X 4. He presents with apathetic mood. He c/o sweats and restlessness. COWS 6 CIWA 6. Valium/Subutex taper completed. Encouraged increased fluids. Encouraged group attendance to improve coping skills and prevent relapse.Will continue to monitor and offer support.
[2018-02-10] MEDS: SULFAMETH/TRIMETH 800/160 MG TABLET PO SCH ×2 (09:12→20:47)
[2018-02-10] MEDS: QUETIAPINE FUMARATE 25 MG TABLET PO SCH ×2 (09:13→20:47)
[2018-02-10] MEDS: MULTIVITAMINS,THERAPEUTIC TABLET PO SCH (09:13)
[2018-02-10] MEDS: GABAPENTIN 400 MG CAPSULE PO SCH ×3 (09:13→20:47)
[2018-02-10] MEDS: FOLIC ACID 1 MG TABLET PO SCH (09:13)
[2018-02-10] MEDS: THIAMINE HCL 100 MG TABLET PO SCH (09:13)
--- NOTE | 2018-02-10 10:25 | NUR ---
Therapist prompted client to attend group therapy sessions.
[2018-02-10 12:00] VITALS: BP 114/75
[2018-02-10] MEDS ORDERED: GABA800T2 PO (12:08)
[2018-02-10] MEDS ORDERED: QUET100T PO (12:08)
[2018-02-10] MEDS ORDERED: CLON0.1T PO (12:08)
--- NOTE | 2018-02-10 12:26 | NUR ---
COWS 7 CIWA 6. He reports restlessness,anxiety,mild body aches and anxiety.
[2018-02-10 12:31] LABS: BILIRUBIN,DIRECT 0.1 mg/dL (0.0-0.2); BILIRUBIN,TOTAL 0.2 mg/dL (0.2-1.0); TOTAL PROTEIN, SERUM 7.1 g/dL (6.4-8.2)
[2018-02-10 16:00] VITALS: BP 123/76
--- NOTE | 2018-02-10 16:03 | NUR ---
Gabapentin held at 1500 as Pt is asleep. Bed locked and low. Call [place] in reach.
--- NOTE | 2018-02-10 16:24 | NUR ---
COWS and CIWA deferred as Pt is asleep.
--- NOTE | 2018-02-10 18:41 | NUR ---
END OF SHIFT: Pt completed Subutex/Valium taper. Last COWS 7 CIWA 6 at noon. Cows and CIWA deferred at 1600 as Pt was asleep. He reported some anxiety,irritability and restlessness. He attended groups. He is scheduled for discharge in AM tomorrow to RTC. Will pass shift report to oncoming night nurse.
--- NOTE | 2018-02-10 19:05 | NUR ---
START OF SHIFT Patient is a 22-year-old male admitted on 02/04/18 for benzo, ETOH, and opiate withdrawal. Patient has completed a 3-day Valium taper and 5-day Subutex taper, tolerated well, and is scheduled for discharge tomorrow. Patients last COWS was 7 and last CIWA was 6 at noon today per endorsement. Patient did not receive any PRNs today. Upon assessment, patient appears apathetic with a depressed mood, he is quiet with his bradley on his head. Patient complains of pain in his right foot and states that he is anxious for discharge tomorrow. He states, I just dont feel ready. I was feeling better earlier today but a couple hours ago I started to feel worse. Patient reports feeling sweats, restless, irritable and discontent. Patient is on fall and seizure precautions with no previous seizure history. Safety measures in place, bed locked in low position, side rails up x2, call light within reach. Will continue to monitor.
[2018-02-10 20:00] VITALS: BP 119/79
--- NOTE | 2018-02-10 20:00 | NUR ---
COWS 8, CIWA 9 Patient reports feeling anxious, restless, irritable, sweats, and feelings of discontentment. Current COWS 8 and CIWA 9. Safety measures in place, SN to administer medications as ordered.
[2018-02-10] MEDS: QUETIAPINE FUMARATE 100 MG TABLET PO SCH (20:47)
[2018-02-10] MEDS: CLONIDINE HCL 0.1 MG TABLET PO PRN (20:53)
--- NOTE | 2018-02-10 20:53 | NUR ---
PRN CLONIDINE Patient reports agitation, anxiety, restlessness and chills. PRN Clonidine given PO. Safety measures in place, side rails up x2, bed locked in low position, call light within reach. Will monitor for effectiveness.
--- NOTE | 2018-02-10 21:53 | NUR ---
PRN CLONIDINE REASSESSMENT Patient reports decreased anxiety and agitation, with decreased discomfort, and is attempting to go to bed. PRN clonidine noted to be effective at this time. Safety measures in place, side rails up x2, bed locked in low position, call light within reach. Will continue to monitor.
[2018-02-11] VITALS: BP 106/63
--- NOTE | 2018-02-11 | NUR ---
COWS & CIWA DEFERRED COWS and CIWA deferred at this time due to patient sleeping; to be assessed while patient is awake. Respirations even and unlabored, 16/min. Safety measures in place, side rails up x2, bed locked in low position, call light within reach. Will continue to monitor.
[2018-02-11 04:00] VITALS: BP 111/66
--- NOTE | 2018-02-11 04:00 | NUR ---
COWS & CIWA DEFERRED COWS and CIWA deferred at this time due to patient sleeping; to be assessed while patient is awake, per protocol. Respirations even and unlabored, safety measures in place. Side rails up x2, bed locked in low position, call light within reach. Will continue to monitor.
--- NOTE | 2018-02-11 07:10 | NUR ---
END OF SHIFT Patient is a 22-year-old male admitted on 02/04/18 for benzo, ETOH, and opiate withdrawal. Patient has completed a 3-day Valium taper and 5-day Subutex taper, tolerated well, and is scheduled for discharge today. Patients last COWS was 7 and last CIWA was 9. Patient received PRN clonidine for some anxiety, irritability, chills and restlessness; noted to be effective. Patient slept for 9 hours, total intake of 1,054mL, void x3, stool x0. Patient is on fall and seizure precautions with no previous seizure history. Safety measures in place, bed locked in low position, side rails up x2, call light within reach. Will endorse to day shift.
[2018-02-11 08:00] VITALS: BP 98/52
--- NOTE | 2018-02-11 08:00 | NUR ---
START OF SHIFT Pt is a 22 yr old male, AA&Ox4. Pt was admitted on 02/04/18 for Benzo/Opiate/ETOH withdrawal and was on 5 day Subutex taper and 3 day Valium taper as ordered. Received report from manufacturing shift supervisor nurse. Pt received Clonidine PRN for anxiety. Last COWS score was 8 and CIWA score was 9. Pt was able to sleep 9 hrs. Pt is currently in bed resting with respirations even and unlabored. Pt is noted with flat affect and avoidant in eye contact. Pt bluntly stated, "What do you guys need now" when entering the room. Pt is c/o anxiety and agitation. Skin is intact, warm and dry to touch. Pt's room in noted disheveled with dirty clothes on the floor and open food wrappers. Pt is to be discharged today to [facility]. COWS score is 4 and CIWA score is 7 this morning. Safety precautions observed. Call light is within reach. Will continue to monitor.
[2018-02-11] MEDS: THIAMINE HCL 100 MG TABLET PO SCH (08:53)
[2018-02-11] MEDS: MULTIVITAMINS,THERAPEUTIC TABLET PO SCH (08:53)
[2018-02-11] MEDS: SULFAMETH/TRIMETH 800/160 MG TABLET PO SCH (08:53)
[2018-02-11] MEDS: QUETIAPINE FUMARATE 25 MG TABLET PO SCH (08:53)
[2018-02-11] MEDS: GABAPENTIN 400 MG CAPSULE PO SCH (08:53)
[2018-02-11] MEDS: FOLIC ACID 1 MG TABLET PO SCH (08:53)
--- NOTE | 2018-02-11 10:00 | NUR ---
DISCHARGED NOTE Pt is a 22 yr old male, AA&Ox4. Pt was admitted on 02/04/18 for ETOH/Benzo/Opiate withdrawal and completed a 5 day Subutex taper and 3 day Valium taper as ordered. Pt has been cooperative with medication regimen and plan of care. Pt was c/o anxiety but was able to cope with anxiety level. No SI/HI noted. Pt states of feeling ready to go and continue with rehabilitation treatment. Pt was educated on discharged summary and prescriptions. Pt was able to verbalize understanding. Pt was discharged off the unit at 0942 in stable condition. Pt was discharged to [facility]. Pt left with all belongings, valuables and home medications.
== END 2018-02-11 09:42 | disposition other institution (70) | DRG 895 ==
LOC: SRC 21:29
PROVIDERS: ADMIT Family Medicine Addiction Medicine; ATTEND Family Medicine Addiction Medicine
PROC: HZ2ZZZZ Detoxification Services for Substance Abuse Treatment (ICD-10-PCS; principal; 2018-02-04)
PROC: HZ31ZZZ Individual Counseling for Substance Abuse Treatment, Behavioral (ICD-10-PCS; 2018-02-06)
PROC: HZ41ZZZ Group Counseling for Substance Abuse Treatment, Behavioral (ICD-10-PCS; 2018-02-07)
DX: F10.230 Alcohol dependence with withdrawal, uncomplicated (principal); F11.23 Opioid dependence with withdrawal; F13.230 Sedative, hypnotic or anxiolytic dependence with withdrawal, uncomplicated; Y90.0 Blood alcohol level of less than 20 mg/100 ml; F14.10 Cocaine abuse, uncomplicated; F41.1 Generalized anxiety disorder; G25.81 Restless legs syndrome; G47.00 Insomnia, unspecified; F31.9 Bipolar disorder, unspecified; M79.89 Other specified soft tissue disorders; Z91.81 History of falling; E88.09 Other disorders of plasma-protein metabolism, not elsewhere classified; E87.6 Hypokalemia; F12.10 Cannabis abuse, uncomplicated
CPT/HCPCS: 36415; 70030-TC; 73630; 80307; 80324; 80346; 80349; 80353; 80361; 83690; 83735; 84443; 85025; 86592; 86705; 86803; 87340; 87806; G0480; Q0163